=== PATIENT | male | born 1990 | race Hispanic/Latino ===

== ENCOUNTER 2024-12-27 00:17 | Emergency (ER) | payer SELFPAY ==
[2024-12-27] MEDS ORDERED: IPRATROPIUM BROM 0.5MG/2.5ML ONE (00:46)
[2024-12-27] MEDS ORDERED: ALBUTEROL 2.5 MG/3 ML NEB SOL ONE (00:46)
[2024-12-27] MEDS ORDERED: AMOX/K CLAV 875 MG TAB ONE (01:05)
[2024-12-27 01:15] LABS: Influenza A Ag Negative; Influenza B Ag Negative; SARS-CoV-2 Antigen Rapid Res Negative (Negative)
--- NOTE | 2024-12-27 01:35 | ER ---
Nurse's Notes [facility] Name: Francisco Li Age: 34 yrs Sex: Male : 1990 Arrival Date: 12/27/2024 Time: 00:17 Bed 8 Private MD: Diagnosis: Acute sinusitis, unspecified Presentation: 12/27 00:22 Chief complaint: Patient states: cough, congestion X1 week. Unable to breathe from nose lg3 X2 days causing SOB. Coronavirus screen: At this time, unable to obtain information related to travel outside the [place] Ebola Screen: No symptoms or risks identified at this time. Initial Sepsis Screen: Does the patient meet any 2 criteria? No. Patient's initial sepsis screen is negative. Does the patient have a suspected source of infection? No. Patient's initial sepsis screen is negative. Risk Assessment: Do you want to hurt yourself or someone else? Patient reports no desire to harm self or others. Onset of symptoms is unknown. 00:22 Method Of Arrival: EMS: [facility] lg3 00:22 Acuity: LORAINE 4 lg3 Triage Assessment: 00:24 General: Appears in no apparent distress. comfortable, Behavior is calm, cooperative. lg3 Pain: Denies pain. EENT: Reports nasal congestion nasal discharge. Neuro: No deficits noted. Page Agitation-Sedation Scale (RASS): 0 - Alert and Calm Level of Consciousness is awake, alert, obeys commands, Oriented to person, place, time, situation. Cardiovascular: No deficits noted. Denies chest pain, Capillary refill < 3 seconds Clubbing of nail beds is absent JVD is absent Patient's skin is warm and dry. Respiratory: Reports shortness of breath Airway is patent Respiratory effort is even, unlabored, Respiratory pattern is regular, symmetrical, Breath sounds are clear bilaterally. Onset: The symptoms/episode began/occurred at an unknown time. the patient has mild shortness of breath. GI: No deficits noted. No signs and/or symptoms were reported involving the gastrointestinal system. : No signs and/or symptoms were reported regarding the genitourinary system. Derm: No deficits noted. No signs and/or symptoms reported regarding the dermatologic system. Skin is intact, is healthy with good turgor, Skin is dry, Skin is normal, Skin temperature is warm. Musculoskeletal: No deficits noted. No signs and/or symptoms reported regarding the musculoskeletal system. Circulation, motion, and sensation intact. Range of motion: intact in all extremities. Historical: - Allergies: 00:24 No Known Allergies; lg3 - Home Meds: 00:24 None [Active]; lg3 - PMHx: 00:24 None; lg3 - PSHx: 00:24 None; lg3 - Immunization history:: Adult Immunizations unknown. - Infectious Disease History:: Denies. - Social history:: Smoking status: Patient denies any tobacco usage or history of. Patient/guardian denies using alcohol, street drugs. Screenin:25 [facility] ED Fall Risk Assessment (Adult) History of falling in the last 3 months, lg3 including since admission No falls in past 3 months (0 pts) Confusion or Disorientation No (0 pts) Intoxicated or Sedated No (0 pts) Impaired Gait No (0 pts) Mobility Assist Device Used No (0 pt) Altered Elimination No (0 pt) Score/Fall Risk Level 0 - 2 = Low Risk Oriented to surroundings, Maintained a safe environment, Educated pt \T\ family on fall prevention, incl call for assistance when getting out of bed, Assessed \T\ reinforced patient's understanding of fall precautions. Abuse screen: Denies threats or abuse. Denies injuries from another. Nutritional screening: No deficits noted. Tuberculosis screening: No symptoms or risk factors identified. Assessment: 00:25 General: see triage assessment. Cardiovascular: Rhythm is regular. lg3 Vital Signs: 00:22 BP 151 / 104; Pulse 80; Resp 16 S; Temp 98.1; Pulse Ox 100% on R/A; Weight 72.57 kg lg3 (R); Height 5 ft. 6 in. (R); 01:41 BP 144 / 90; Pulse 69; Resp 20; Temp 97.8; Pulse Ox 100% ; Pain 0/10; jj7 00:22 Body Mass Index 25.82 (72.57 kg, 167.64 cm) lg3 01:41 Pain Scale: Adult j7 ED Course: 00:18 Patient arrived in ED. jj6 00:22 Kiki Hammer RN is Primary Nurse. lg3 00:24 Gale Muñoz FNP-C is PHCP. kb 00:24 James Puente MD is Attending Physician. kb 00:24 Triage completed. lg3 00:24 Arm band placed on right wrist. lg3 00:25 Patient has correct armband on for positive identification. Placed in gown. Bed in low lg3 position. Call light in reach. Side rails up X 1. Door closed. Noise minimized. Warm blanket given. Pillow given. 00:36 COVID-19 Ag + Flu A+B Ag Sent. lg3 01:45 No provider procedures requiring assistance completed. Patient did not have IV access jj7 during this emergency room visit. Administered Medications: 01:00 Drug: Dexamethasone IM 10 mg IM once Route: IM; Site: right deltoid; lg3 01:41 Follow up: Response: Marked relief of symptoms jj7 01:00 Drug: Albuterol Inhalation 2.5 mg Inhalation once Route: Inhalation; lg3 01:41 Follow up: Response: Marked relief of symptoms jj7 01:00 Drug: Ipratropium Inhalation Aerosol 0.5 mg Inhalation once Route: Inhalation; lg3 01:41 Follow up: Response: Marked relief of symptoms jj7 01:40 Drug: Amoxicillin-Clavulanate PO 875 mg PO once Route: PO; jj7 01:40 Follow up: Response: No adverse reaction jj7 Medication: 00:25 VIS not applicable for this client. lg3 Outcome: 01:35 Discharge ordered by . kb 01:45 Discharged to home ambulatory, jj7 01:45 Condition: improved 01:45 Discharge instructions given to patient, Instructed on discharge instructions, medication usage, Demonstrated understanding of instructions, medications, Prescriptions given X 2, 01:46 Patient left the ED. jj7 Signatures: Gale Muñoz FNP-C COLD TYPE ARTIST-Kiki Valerio, RN RN lg3 Bina Yo jj6 Suzette Olson RN RN jj7 Corrections: (The following items were deleted from the chart) 01:23 01:23 Inserted saline lock: 22 gauge in left antecubital area, using aseptic technique. lg3 Blood collected. Flushed with 10 mL NS lg3 :23 01:23 Initial lab(s) drawn, by ED staff, sent to lab. lg3 lg3
--- NOTE | 2024-12-27 01:35 | EDPHYS ---
Physician Documentation [facility] Name: Francisco Li Age: 34 yrs Sex: Male : 1990 Arrival Date: 12/27/2024 Time: 00:17 Bed 8 Private MD: ED Physician James Puente HPI: 12/27 01:33 This 34 yrs old Male presents to ER via EMS with complaints of Flu Symptoms. kb 01:33 Pt is a 34 year old male who presents for nasal congestion that started 5 days ago. kb states he is having trouble breathing because he can't breath out of his nose and has to breath out of his mouth. Denies fever. . Historical: - Allergies: 00:24 No Known Allergies; lg3 - Home Meds: 00:24 None [Active]; lg3 - PMHx: 00:24 None; lg3 - PSHx: 00:24 None; lg3 - Immunization history:: Adult Immunizations unknown. - Infectious Disease History:: Denies. - Social history:: Smoking status: Patient denies any tobacco usage or history of. Patient/guardian denies using alcohol, street drugs. ROS: 01:33 Constitutional: As per HPI kb Exam: 01:33 Constitutional: This is a well developed, well nourished patient who is awake, alert, kb and in no acute distress. Head/Face: Normocephalic, atraumatic. ENT: Moist Mucous membranes Cardiovascular: Regular rate Respiratory: Respirations even and unlabored. No increased work of breathing. Talking in full sentences Skin: Warm, dry with normal turgor. Normal color. MS/ Extremity: Pulses equal, no cyanosis. Neurovascular intact. Full, normal range of motion. Neuro: Awake and alert, GCS 15, oriented to person, place, time, and situation. Vital Signs: 00:22 BP 151 / 104; Pulse 80; Resp 16 S; Temp 98.1; Pulse Ox 100% on R/A; Weight 72.57 kg lg3 (R); Height 5 ft. 6 in. (R); 01:41 BP 144 / 90; Pulse 69; Resp 20; Temp 97.8; Pulse Ox 100% ; Pain 0/10; jj7 00:22 Body Mass Index 25.82 (72.57 kg, 167.64 cm) lg3 01:41 Pain Scale: Adult jj7 MDM: 00:24 Medical Screening Exam initiated kb 01:34 Differential diagnosis: uri, flu, covid, sinusitis. Data reviewed: vital signs, nurses kb notes. Counseling: I had a detailed discussion with the patient and/or guardian regarding the historical points, exam findings, and any diagnostic results supporting the discharge/admit diagnosis, lab results, the need for outpatient follow up, a family practitioner, to return to the emergency department if symptoms worsen or persist or if there are any questions or concerns that arise at home. 12/27 00:24 Order name: COVID-19 Ag + Flu A+B Ag; Complete Time: 01:15 kb Administered Medications: 01:00 Drug: Dexamethasone IM 10 mg IM once Route: IM; Site: right deltoid; lg3 01:41 Follow up: Response: Marked relief of symptoms jj7 01:00 Drug: Albuterol Inhalation 2.5 mg Inhalation once Route: Inhalation; lg3 01:41 Follow up: Response: Marked relief of symptoms jj7 01:00 Drug: Ipratropium Inhalation Aerosol 0.5 mg Inhalation once Route: Inhalation; lg3 01:41 Follow up: Response: Marked relief of symptoms jj7 01:40 Drug: Amoxicillin-Clavulanate PO 875 mg PO once Route: PO; jj7 01:40 Follow up: Response: No adverse reaction jj7 Disposition: 07:35 I reviewed the patient's care provided by the Advanced Practice Provider and agree with tw7 the diagnosis and treatment plan. Disposition Summary: 12/27/24 01:35 Discharge Ordered Notes: Location: Home kb Condition: Stable kb Diagnosis - Acute sinusitis, unspecified kb Followup: kb - With: Emergency Department - When: As needed - Reason: Worsening of condition Followup: kb - With: Private Physician - When: 2 - 3 days - Reason: Recheck today's complaints, Continuance of care, Re-evaluation by your physician Discharge Instructions: - Discharge Summary Sheet kb - Sinusitis, Adult, [id number] kb Forms: - Medication Reconciliation Form kb - Antibiotic Education kb - Prescription Opioid Use kb - Patient Portal Instructions kb - Leadership Thank You Letter kb - Work release form vc1 Prescriptions: - Augmentin 875-125 mg Oral Tablet - take 1 tablet ORAL route every 12 hours for 10 days; 20 tablet; Refills: 0, kb Product Selection Permitted - Prednisone 20 mg Oral Tablet - take 1 tablet ORAL route once daily for 5 days; 5 tablet; Refills: 0, Product kb Selection Permitted Signatures: Dispatcher [employer] Gale Ansari, ANIKETC RN RADIATION ONCOLOGY-Kiki Valerio RN RN lg3 Shannan Cuellar RN RN vc1 Suzette Olson RN RN jj7 James Puente MD MD tw7
[2024-12-27 12:44] VITALS: O2SAT 100
[2024-12-27 12:49] VITALS: BP 144/90; TEMP 97.8
== END 2024-12-27 01:46 | disposition home or self-care (01) ==
LOC: ER 00:17 → EDBD 00:17 → ER 01:46
DX: J01.90 Acute sinusitis, unspecified (principal); Z11.52 Encounter for screening for COVID-19
CPT/HCPCS: 36415; 87428; 96372; 99285; J1100; J7613; J7644